=== PATIENT | male | born 1960 | race American Indian/Alaskan Native ===

== ENCOUNTER 2016-09-20 09:05 | Emergency (ER) | payer MEDICARE ==
[2016-09-20 09:06] VITALS: BMI 19.5
[2016-09-20 09:11] VITALS: BP 160/80; PULSE 82; RESP 19; O2SAT 99
[2016-09-20 09:12] VITALS: TEMP 97.5
[2016-09-20] MEDS ORDERED: Morphine 4 mg/ml ISec IVP STA (09:39)
[2016-09-20] MEDS ORDERED: Sodium Chloride 0.9% 1,000 ML IV STA (09:40)
[2016-09-20 09:53] LABS: BASO # 0.19 [, K/mm3] (0.0-2.0); EOS # 0.2 (0.0-0.7); GRAN # 3.79 (1.4-6.5); GRAN % 40.6 % (50.0-68.0); LYMPH # 3.8 (1.2-3.4); LYMPH % 40.4 % (22.0-35.0); MEAN CELL VOLUME 89.6 fL (80.0-105.0); MEAN CORPUSCULAR HEMOGLOBIN 30.5 pg (25.0-35.0); MEAN CORPUSCULAR HGB CONC 34.1 g/dl (31.0-37.0); MONO # 1.4 (0.1-0.6); PLATELET COUNT 409 [, 10^3/uL] (120.0-450.0); RED CELL DISTRIBUTION WIDTH 20.5 % (11.5-14.5); WHITE BLOOD COUNT 9.3 [, 10^3/ul] (4.5-11.0)
[2016-09-20 09:57] LABS: ADD MANUAL DIFF? NO; HEMATOCRIT 23.2 % (42.0-52.0)
[2016-09-20] MEDS ORDERED: oxyCODONE 5 mg Immediate Release Tab PO STA (10:02)
[2016-09-20 10:04] LABS: INR 1.17 (0.93-1.08); PARTIAL THROMBOPLASTIN TIME 28.7 Seconds (23.7-30.8)
[2016-09-20 10:05] LABS: ALB/GLOB RATIO 1.3 (1.1-1.8); ALKALINE PHOSPHATASE 87 U/L (38-133); ALT/SGPT 28 U/L (7-56); AST/SGOT 87 U/L (15-59); BILIRUBIN,TOTAL 5.3 mg/dL (0.2-1.3); BLOOD UREA NITROGEN 11 mg/dL (7-21); CALCIUM 9.5 mg/dL (8.4-10.5); CARBON DIOXIDE 25 mmol/L (21-33); CHLORIDE 105 mmol/L (98-107); GFR AFRICAN-AMERICAN > 60; GLUCOSE,RANDOM 100 mg/dL (70-110); MAGNESIUM 1.9 mg/dL (1.7-2.2); POTASSIUM 4.3 mmol/L (3.6-5.0); SODIUM 140 mmol/L (132-148); TOTAL PROTEIN 7.9 g/dL (5.8-8.3)
--- NOTE | 2016-09-20 10:06 | ED PDOC ---
Arrival/HPI - General Chief Complaint: Chest Pain Time Seen by Provider: 09/20/16 09:14 Historian: Patient - History of Present Illness Narrative History of Present Illness (Text): 09/20/16 09:29 Paige Peters Jr. is a 56 year old male, whose past medical history includes sickle cell anemia with transfusions, CAD, pancreatitis, and chronic ulcer on right foot, who presents to the emergency department complaining of chest pain since 02:00 this morning. Patient states that he woke up to a sharp pain that dulled but remains constant, still present in emergency department. He notes that during normal chronic sickle cell episodes, chest pain is not normal. Patient notes that he has not taken any medication for the pain and at present has slight body ached. Patient denies any other complaint at this time. PMD: Dr. Sanchez Coning Machine Operator: Dr. Parra Time/Duration: 24 hours (since 02:00 this morning) Symptom Onset: Gradual Symptom Course: Unchanged Activities at Onset: Rest Context: Home Past Medical History - Provider Review Nursing Documentation Reviewed: Yes - Infectious Disease Hx of Infectious Diseases: None - Tetanus Immunization Tetanus Immunization: Unknown - Past Medical History Past Medical History: Unable to Obtain - Cardiac Hx Pacemaker: No - Pulmonary Hx Respiratory Disorders: Yes Hx Pneumonia: Yes - Neurological Hx Paralysis: No - HEENT Hx HEENT Disorder: Yes (WEARS RX GLASSES) - Renal Hx Renal Disorder: No Hx Kidney Stones: No - Endocrine/Metabolic Hx Hypothyroidism: Yes - Hematological/Oncological Hx Blood Transfusions: Yes Hx Blood Transfusion Reaction: No - Integumentary Hx Dermatological Disorder: Yes (BILATERAL STASIS ULCER/WOUND DRESSING AT WOUND CTR.DRY,PRESSURE DSG.) - Musculoskeletal/Rheumatological Hx Musculoskeletal Disorders: Yes - Gastrointestinal Hx Gastrointestinal Disorders: Yes (hx splenectomy/hernia) - Genitourinary/Gynecological Hx Reproductive Disorders: Yes (penile implant) - Psychiatric Hx Emotional Abuse: No Hx Physical Abuse: No Hx Substance Use: No - Past Surgical History Past Surgical History: Unable to Obtain - Surgical History Hx Cholecystectomy: Yes Other/Comment: other childhood surgeries. - Anesthesia Hx Anesthesia: No Hx Anesthesia Reactions: No Hx Malignant Hyperthermia: No - Suicidal Assessment Feels Threatened In Home Enviroment: No Family/Social History - Physician Review Nursing Documentation Reviewed: Yes Family/Social History: No Known Family HX Smoking Status: Former Smoker Hx Alcohol Use: No Hx Substance Use: No Hx Substance Use Treatment: No Allergies/Home Meds Allergies/Adverse Reactions: Allergies No Known Allergies Allergy (Verified 09/20/16 09:31) Home Medications: Home Meds Medication Instructions Recorded Confirmed oxyCODONE [oxyCODONE Immediate 60 mg PO Q4H PRN 01/10/15 09/20/16 Release Tab] Oxycodone HCl [Oxycontin] 160 mg PO Q12H 10/01/15 09/20/16 Pepcid 10 mg PO DAILY 04/06/16 09/20/16 Vitamin C 250 mg Tab 250 mg PO DAILY 04/06/16 09/20/16 Levothyroxine [Synthroid] 09/20/16 Review of Systems - Physician Review All systems were reviewed & negative as marked: Yes - Review of Systems Constitutional: absent: Fevers, Night Sweats Eyes: absent: Vision Changes ENT: absent: Hearing Changes Respiratory: absent: SOB Cardiovascular: Chest Pain Gastrointestinal: absent: Abdominal Pain Genitourinary Male: absent: Urinary Output Changes Musculoskeletal: absent: Back Pain Skin: absent: Rash Neurological: absent: Headache Endocrine: absent: Diaphoresis Hemo/Lymphatic: absent: Adenopathy Psychiatric: absent: Anxiety Physical Exam Vital Signs Reviewed: Yes Vital Signs Temp Pulse Resp BP Pulse Ox 09/20/16 09:11 97.5 F L 82 19 160/80 H 99 Temperature: Hypothermic Blood Pressure: Hypertensive Pulse: Regular Respiratory Rate: Normal Appearance: Positive for: Well-Appearing, Non-Toxic, Comfortable Pain Distress: None Mental Status: Positive for: Alert and Oriented X 3 - Systems Exam Head: Present: Atraumatic, Normocephalic Pupils: Present: PERRL Extroacular Muscles: Present: EOMI Conjunctiva: Present: Normal Mouth: Present: Moist Mucous Membranes Neck: Present: Normal Range of Motion Respiratory/Chest: Present: Tender to Palpation (Tenderness to chest wall) Cardiovascular: Present: Regular Rate and Rhythm, Normal S1, S2. No: Murmurs Abdomen: Present: Normal Bowel Sounds. No: Tenderness, Distention, Peritoneal Signs Back: Present: Normal Inspection Upper Extremity: Present: Normal Inspection. No: Cyanosis, Edema Lower Extremity: Present: Normal Inspection. No: Edema Neurological: Present: GCS=15, CN II-XII Intact, Speech Normal Skin: Present: Warm, Dry, Normal Color. No: Rashes Psychiatric: Present: Alert, Oriented x 3, Normal Insight, Normal Concentration Medical Decision Making ED Course and Treatment: 09/20/16 09:25 Impression: 56 year old male complaining of middle to right-sided chest pain since 02:00 this morning. Differential Diagnosis included but are not limited to: chest pain, body pain secondary to sickle cell crisis, less likely cardiac. r/o anemia Plan: -- EKG -- Chest X-ray -- Labs -- Morphine, Oxycodone -- IV Fluids -- Reassess and disposition Prior Visits: Notes and results from previous visits were reviewed. Patient last seen in the ED on 07/27/16 for 2 day history of constant periumbilical abdominal pain associated with multiple episodes of diarrhea. Patient was admitted to hospitalist care for further evaluation. Progress Notes: EKG: Ordered, reviewed, and independently interpreted the EKG. Rate : 67 BPM Rhythm : NSR Interpretation : LVH. T-wave inversions in lateral leads. Comparison : No change form previous on 07/27/16 09/20/16 10:49 Patient feels better. CXR reviewed and no acute infiltrate, similar to previous CXR. I discussed plan with patient who will continue to take his pain medications at home for his sickle cell disease. He says he takes Oxycodone. He will follow up with his primary care doctor. - Lab Interpretations Lab Results: 09/20/16 09:48 09/20/16 09:48 Lab Results 09/20/16 09:48: WBC 9.3 D, RBC 2.59 L, Hgb 7.9 L, Hct 23.2 L, MCV 89.6, MCH 30.5, MCHC 34.1, RDW 20.5 H, Plt Count 409, MPV 10.0, Gran % 40.6 L, Lymph % ( Auto) 40.4 H, [place] % (Auto) 15.0 H, Eos % (Auto) 2.0, Baso % (Auto) 2.0, Gran # 3.79, Lymph # 3.8 H, [place] # 1.4 H, Eos # 0.2, Baso # 0.19, PT 12.6 H, INR 1.17 H , APTT 28.7, Sodium 140, Potassium 4.3, Chloride 105, Carbon Dioxide 25, Anion Gap 14, BUN 11, Creatinine 1.0, Est GFR ( Amer) > 60, Est GFR (Non-Af Amer) > 60, Random Glucose 100, Calcium 9.5, Magnesium 1.9, Total Bilirubin 5.3 H, AST 87 H, ALT 28, Alkaline Phosphatase 87, Lactate Dehydrogenase 3066 H, Total Creatine Kinase 31 L, Troponin I 0.02 D, Total Protein 7.9, Albumin 4.5, Globulin 3.4, Albumin/Globulin Ratio 1.3 I have reviewed the lab results: Yes Interpretation: No clinic. lab abnormalty (Hbg is his baseline as per pt.) - RAD Interpretation Radiology Orders: 09/20/16 09:40 CHEST PORTABLE [RAD] Stat Car Carder: ED Physician - Medication Orders Current Medication Orders: Discontinued Medications Sodium Chloride (Sodium Chloride 0.9%) 1,000 mls @ 999 mls/hr IV .Q1H1M STA Stop: 09/20/16 10:40 Last Admin: 09/20/16 09:48 Dose: 999 MLS/HR eMAR Start Stop Document 09/20/16 09:48 SE (Rec: 09/20/16 09:48 SE [id number]) Intravenous Solution Start Date 09/20/16 Start Time 09:48 Morphine Sulfate (Morphine) 4 mg IVP STAT STA Stop: 09/20/16 09:40 Last Admin: 09/20/16 10:05 Dose: Oxycodone HCl (Oxycodone Immediate Release Tab) 5 mg PO STAT STA Stop: 09/20/16 10:03 Last Admin: 09/20/16 10:07 Dose: 5 MG - Scribe Statement The provider has reviewed the documentation as recorded by the Tenisha Dumont Provider Scribe Attestation: All medical record entries made by the Tenisha were at my direction and personally dictated by me. I have reviewed the chart and agree that the record accurately reflects my personal performance of the history, physical exam, medical decision making, and the department course for this patient. I have also personally directed, reviewed, and agree with the discharge instructions and disposition. Disposition/Present on Arrival - Present on Arrival Any Indicators Present on Arrival: No History of DVT/PE: No History of Uncontrolled Diabetes: No Urinary Catheter: No History of Decub. Ulcer: No History Surgical Site Infection Following: None - Disposition Have Diagnosis and Disposition been Completed?: Yes Diagnosis: Sickle cell anemia, Chest pain Disposition: HOME/ ROUTINE Disposition Time: 10:25 Patient Plan: Discharge Patient Problems: Current Active Problems Problem Status Diagnosed Avascular necrosis of femoral head Acute Chest pain Acute Contusion of hip Acute Hip pain Acute Near syncope Acute Non-healing ulcer of right foot Acute Sickle cell anemia Acute CHF (congestive heart failure) Chronic Condition: IMPROVED Discharge Instructions (ExitCare): Chest Pain (ED) Additional Instructions: Mr Peters, thank you for letting us take care of you today. Your provider was Dr. Phillips. You were treated for Chest Pain, Sickle Cell. The emergency medical care you received today was directed at your acute symptoms. If you were prescribed any medication, please fill it and take as directed. It may take several days for your symptoms to resolve. Return to the Emergency Department if your symptoms worsen, do not improve, or if you have any other problems. Please contact your doctor or call one of the physicians/clinics you have been referred to that are listed on the Patient Visit Information form that is included in your discharge packet. Bring any paperwork you were given at discharge with you along with any medications you are taking to your follow up visit. Our treatment cannot replace ongoing medical care by a primary care provider (PCP) outside of the emergency department. Thank you for allowing the [facility] team to be part of your care today. If you had an X-Ray or CT scan: A Radiologist will review the ED reading if any change in treatment is needed we will contact you. If you had a blood, urine, or wound culture: It will take several days for the results, if any change in treatment is needed we will contact you. If you had an STI test: It will take 48 hours for the results. Please call after 1 week if you have not heard back. Referrals: Delta Sanchez, [Primary Care Provider] - Follow up with primary Forms: WORK NOTE
[2016-09-20 10:15] LABS: TROPONIN I 0.02 ng/mL
--- NOTE | 2016-09-20 11:53 | RAD ---
HISTORY: Chest pain COMPARISON: 07/27/2016. FINDINGS: LUNGS: The lungs are hyperinflated and there is peribronchial thickening with chronic changes in both lungs. There is no focal consolidation. PLEURA: No significant pleural effusion identified, no pneumothorax apparent. CARDIOVASCULAR: Normal. OSSEOUS STRUCTURES: No significant abnormalities. VISUALIZED UPPER ABDOMEN: Normal. OTHER FINDINGS: There is a small hiatal hernia. IMPRESSION: No active pulmonary disease. COPD.
--- NOTE | 2016-09-20 14:43 | CARD ---
APPROVED REPORT EKG Measurement Heart [id number] <Conclusion> Normal sinus rhythm Left axis deviation Voltage criteria for left ventricular hypertrophy T wave abnormality, consider lateral ischemia Abnormal ECG
== END 2016-09-20 11:01 | disposition home or self-care (01) ==
LOC: ED 09:05
DX: D57.1 Sickle-cell disease without crisis (principal); R07.9 Chest pain, unspecified; I25.10 Atherosclerotic heart disease of native coronary artery without angina pectoris
CPT/HCPCS: 71010; 80053; 82550; 83615; 83735; 84484; 85025; 85610; 85730; 93005; 99284; J7040